=== PATIENT | female | born 1940 | race Caucasian/White ===

== ENCOUNTER → 2020-08-01 | Outpatient (CLI) | payer OTHER, BC ==
[~2020-08-01] MED LIST: AMITRIPTYLINE H25 M3 PO; ANALPRAM HC 2.530 GM RECTAL; ASA81BEC PO; AZELASTIN-FLUTI23 GM INH; CO Q-10150 MG PO; COZAAR 25 MG TA25 M2 PO; CRESTOR10 MG PO; FISH OIL 1,0001 EAC9 PO; GREEN TEA250 MG PO; LEXAPRO20 MG PO; PREVACID30 MG PO; VITAMIN B COMPLEX; VOLTAREN100 GM
--- NOTE | 2020-08-01 11:22 | NUR ---
VAT CONSULTED FOR PICC LINE FOR OUTPT IV ABX. RIGHT UPPER BASILIC, SL PICC INSERTED, PER POLICY. TIP LOCATION VERIFIED WITH 3CG. RELEASED FOR USE, PER HOSPITAL POLICY.
[2020-08-01 12:09] LABS: HEMATOCRIT 39.9 % (37.0-47.0); HEMOGLOBIN 12.8 gm/dL (12.0-15.0); MCH 28.3 pg (26.0-34.0); MCHC 32.1 g/dL (28.0-37.0); MCV 88.1 fL (80.0-100.0); RBC 4.53 mil/uL (4.20-5.00); RDW 14.7 % (10.5-14.5); WBC 7.6 thou/uL (4.0-11.0)
[2020-08-01 12:26] LABS: ALBUMIN 3.7 g/dL (3.4-5.0); CALCIUM 8.9 mg/dL (8.5-10.1); CREATININE 0.9 mg/dL (0.6-1.0); POTASSIUM 3.8 mmol/L (3.5-5.1); TOTAL BILIRUBIN 0.3 mg/dL (0.2-1.0); TOTAL PROTEIN 6.2 g/dL (6.4-8.2)
[2020-08-01 16:43] VITALS: BP 154/95
--- NOTE | 2020-08-01 16:44 | NUR ---
IN FOR PICC LINE PLACEMENT AND 1ST DOSE OF VANCOMYCIN FOR RT FOOT CELLULITIS. ADMISSION HISTORY AND ASSESSMENT COMPLETED. PATIENT COULD NOT REMEMBER WHAT MEDICATIONS SHE TAKES. SHE WILL BRING IN LIST5 ON TUESDAY. IV TEAM PLACED SINGLE LUMEN PICC LINE IN [facility] AND CONFIRMED CORRECT PLACEMENT. [facility] FROM PICC LINE WITHOUT DIFFICULTY. TOLERATED VANCOMYCIN WITHOUT INCIDENT. PLAN IS TO GO TO ED FOR WEEKEND INFUSIONS AND BACK HERE TO CLINIC ON TUESDAY. WILL SEE DR. GANDHI ON TUESDAY. DISMISSED IN GOOD CONDITION.
== END ==
LOC: OPONC 09:31
PROVIDERS: ATTEND Specialist
DX: L03.115 Cellulitis of right lower limb (principal)
CPT/HCPCS: 27000; 95000; 95001

== ENCOUNTER → 2020-08-02 | Outpatient (CLI) | payer OTHER, BC | LOC: OPONC 12:00 | PROVIDERS: ATTEND Specialist | DX: L03.115 Cellulitis of right lower limb (principal) | CPT/HCPCS: 95000; 95001 ==

== ENCOUNTER → 2020-08-03 | Outpatient (CLI) | payer OTHER, BC | LOC: OPONC 12:00 | PROVIDERS: ATTEND Specialist | DX: L03.115 Cellulitis of right lower limb (principal) | CPT/HCPCS: 95000; 95001 ==

== ENCOUNTER → 2020-08-04 | Outpatient (CLI) | payer OTHER, BC ==
[2020-08-04 13:38] VITALS: BP 128/74
--- NOTE | 2020-08-04 15:48 | NUR ---
IN FOR DAILY VANCOMYCIN INFUSION FOR RIGHT FOOT CELLULITIS. STATED FEELING WELL. VITAL SIGNS GOOD. DENIED FEVER/CHILLS, NAUSEA, AND PAIN. PATIENT REPORTED SHE DID HAVE A BOUT OF DIARRHEA THIS MORNING. ENCOURAGED PATIENT TO TRY IMMODIUM, BUT IF DIARRHEA BECOMES SEVERE TO NOTIFY THE DOCTOR. ALSO PATIENT WILL START TAKING A PROBIOTIC. TOLERATED INFUSION WITHOUT INCIDENT. DR. GANDHI VISITED. VANCOMYCIN TROUGH 9, SO DR. GANDHI INCREASED DOSAGE TO 1500 MG EVERY 24 HOURS. AN EXTRA 300 MG GIVEN TODAY TO BRING TOTAL DOSE TO 1500 MG. PLAN IS TO CONTINUE THE SAME THROUGH TUESDAY AND RE-EVALUATE. [facility] FROM PICC LINE WITHOUT DIFFICULTY. SITE WNL. WOUND TO RIGHT FOOT PACKED WITH IODOFORM POST SURGERY. DID NOT REMOVE TODAY. PATIENT TO SEE THE SURGEON ON TUESDAY. APPLIED XEROFORM, GAUZE, KERLIX AND APPLE WRAP. DISMISSED IN GOOD CONDITION.
--- NOTE | 2020-08-05 21:40 | HC ---
[facility] [place] [address] CONSULTATION Name: HENNA CORCORAN [id number] Admission: 08/04/20 Attend Phys: Kenji Ngo MD Discharge: Date of : 42 Report #: [id number] THIS REPORT FOR: cc: Beck Benoit MD, James B. MD Geha,Kenji Ragsdale MD ~ DATE OF SERVICE: 08/04/2020 INFECTIOUS DISEASE OUTPATIENT FOLLOWUP VISIT REASON FOR CONSULTATION: Right lateral foot soft tissue infection. HISTORY OF PRESENT ILLNESS: The patient is a 80-year-old with underlying scleroderma, Raynaud's syndrome, has had pain and swelling to her fifth metatarsal since 12/2019. She did undergo injection in the region, previously. Subsequently, has been on several courses of oral antibiotic therapy. She developed an ulceration over the lateral aspect of the fifth metatarsal head. She has had small amount of drainage. She was seen by Dr. Jordan, who did further workup including vascular ultrasound and MRI scan with no evidence of high-grade vascular obstruction. She did have what appears to be a small vessel disease. An MRI scan showed small abscess to the dorsal lateral aspect of her fifth MTP joint. There is no bony abnormality. She subsequently underwent a culture of the wound in the outpatient clinic, which revealed enterococcus. She then underwent a surgical debridement last week and I am awaiting these results. She was placed on vancomycin postoperatively. She remained on such and is tolerating it without side effect. ALLERGIES: ALLERGIC TO PENICILLIN. PAST MEDICAL HISTORY: Systemic sclerosis, Raynaud's syndrome, hyperlipidemia, hypertension, gastroesophageal reflux, and melanoma. REVIEW OF SYSTEMS: She has loose stools today. She has had no other cardiopulmonary or issues. Postoperatively, she has had her right foot dressed. There has been no drainage to the dressing. She has had pain controlled and is ambulatory. No fever, chills or sweats. PHYSICAL EXAMINATION: VITAL SIGNS: Afebrile and hemodynamically stable. GENERAL: She is alert and cooperative. EXTREMITIES: Right upper extremity PICC without drainage or erythema. Right foot wound was packed. Minimal surrounding erythema. No increased swelling. Right fifth toe, very mild edema. LABORATORY STUDIES: Vancomycin trough was 9 on 1200 mg IV every day. [address] [address] CONSULTATION Name: HENNA CORCORAN Room #: REG [facility].#: [id number] Admission: 08/04/20 Attend Phys: Kenji Ngo MD Discharge: Date of : 42 Report #: [id number] Creatinine is 0.9. Liver function tests normal. Hemoglobin is 12.8, white count 7.6, and platelet 224,000. IMPRESSION: Right lateral foot abscess over the fifth metatarsal head. No evidence of septic arthritis or osteomyelitis at this point. Had enterococcal growth from previous culture. THE PATIENT IS ALLERGIC TO PENICILLIN. PLAN: To continue vancomycin, pending further culture results. We would await wound healing before switching to enteral therapy. She is at very high risk for further issues involving the joint giving the history of scleroderma and suspected vascular compromise in the distal vascular bed. We will reevaluate next week. I have called for updated microbiology reports. <ELECTRONICALLY SIGNED> By: Kenji Ngo MD 08/05/20 2140 1428 2100 Kenji Ngo MD /nt
== END ==
LOC: OPONC 13:51
PROVIDERS: ATTEND Specialist
DX: L03.115 Cellulitis of right lower limb (principal)
CPT/HCPCS: 95000; 95001

== ENCOUNTER → 2020-08-05 | Outpatient (CLI) | payer OTHER, BC ==
[2020-08-05 10:28] LABS: POTASSIUM 3.9 mmol/L (3.5-5.1)
[2020-08-05 10:37] VITALS: BP 125/88
--- NOTE | 2020-08-05 13:13 | NUR ---
HERE FOR VANCOMYCIN VIA PICC LINE. PICC INTACT AND FLUSHES EASLILY WITH BRISK BLOOD RETURN. PATIENT RECIEVED INCREASED DOSE OF VANCOMYCIN 1500MG. TOLERATED INFUSION WITHOUT ADVERSE REACTION. BMP DRAWN AND RESULTS FAXED TO DR. GANDHI. PATIENT STATES SHE HAD DIARRHEA YESTERDAY BUT HAS HAD NONE TODAY. VOICED NO OTHER COMPLAINTS. DC FOLLOWING INFUSION PER WHEELCHAIR TO HOME WITH NEIGHBOR
== END ==
LOC: OPONC 09:01
PROVIDERS: ATTEND Specialist
DX: L03.115 Cellulitis of right lower limb (principal)
CPT/HCPCS: 95000; 95001

== ENCOUNTER → 2020-08-06 | Outpatient (CLI) | payer OTHER, BC ==
[2020-08-06 09:28] VITALS: BP 107/71
--- NOTE | 2020-08-06 12:20 | NUR ---
HERE FOR DAILY IV VANCOMYCIN INFUSION. REPORTS DOING WELL, FEELING WELL. DENIES N/V/DIARRHEA, FEVER/CHILLS OR ANY CONCERNS. NO PAIN. SEEING HER HARDENING MACHINE OPERATOR HELPER THIS AFTERNOON. TOLERATED INFUSION TODAY WITHOUT INCIDENT. DISMISSED IN STABLE CONDITION. SCHEDULED TO RETURN TOMORROW.
== END ==
LOC: OPONC 08:56
PROVIDERS: ATTEND Specialist
DX: L03.115 Cellulitis of right lower limb (principal)
CPT/HCPCS: 95000; 95001

== ENCOUNTER → 2020-08-07 | Outpatient (CLI) | payer OTHER, BC ==
[2020-08-07 09:56] VITALS: BP 113/48
--- NOTE | 2020-08-07 12:36 | NUR ---
HERE FOR DAILY IV VANCOMYCIN INFUSION. REPORTS DOING WELL, FEELING WELL. NO COMPLAINTS, DENIES N/V/DIARRHEA, FEVER/CHILLS. SAW HER AGRICULTURAL SCIENCES PROFESSOR YESTERDAY. STATES DR. HOYOS AND DR. GANDHI SPOKE AND THAT A NEW ORAL ANTIBIOTIC HAS BEEN CALLED IN TO HER PHARMACY. PT PLANS TO PICK THIS UP ON WAY HOME TODAY. SHE IS ALSO PICKING UP DRESSING SUPPLIES AND STATES SHE IS ABLE TO CHANGE HER DRESSING DAILY PER RECOMMENDATION OF DR. HOYOS--CLEANSE WITH SALINE THEN APPLY DRY GAUZE DAILY. VANCO TR DRAWN PRIOR TO DOSE TODAY AND RESULT CALLED TO DR. GANDHI (15). HE STATES THIS IS JUST WHERE HE WANTS IT TO BE. PT TOLERATED INFUSION WITHOUT INCIDENT. DISMISSED IN STABLE CONDITION. SCHEDULED TO RETURN AGAIN TOMORROW.
== END ==
LOC: OPONC 09:07
PROVIDERS: ATTEND Specialist
DX: L03.115 Cellulitis of right lower limb (principal)
CPT/HCPCS: 95000; 95001

== ENCOUNTER → 2020-08-08 | Outpatient (CLI) | payer OTHER, BC ==
[2020-08-08 15:11] VITALS: BP 127/85
--- NOTE | 2020-08-08 15:15 | NUR ---
IN FOR DAILY DAPTOMYCIN INFUSION FOR RT FOOT WOUND AND CELLULITIS. STATED FEELING WELL TODAY. DENIED NAUSEA, DIARRHEA, FEVER/CHILLS, JOINT PAIN, AND NO PAIN TO ACHILLES TENDONS. PICC SITE WNL WITH GOOD BLOOD RETURN. TOLERATED INFUSION WITHOUT DIFFICULTY. DR. GANDHI VISITED. PLAN IS TO CONTINUE THE SAME FOR ONE MORE WEEK. TO SEE DR. GANDHI AGAIN NEXT TUESDAY. APPLIED XEROFORM DRESSING, GAUZE, KERLIX AND APPLE WRAP TO WOUND ON RT FOOT. DISMISSED IN STABLE CONDITION.
--- NOTE | 2020-08-09 18:56 | HC ---
[facility] [place] [address] CONSULTATION Name: HENNA CORCORAN [facility] [id number] Admission: 08/08/20 Attend Phys: Kenji Ngo MD Discharge: Date of : 42 Report #: [id number] THIS REPORT FOR: cc: Beck Benoit MD, James B. MD Geha,Kenji Ragsdale MD ~ DATE OF SERVICE: 08/08/2020 FOLLOWUP INFECTIOUS DISEASE OUTPATIENT CONSULTATION REASON FOR CONSULTATION: Followup right lateral foot soft tissue infection in the setting of Raynaud's and scleroderma. HISTORY OF PRESENT ILLNESS: The patient has had pain in her fifth metatarsal since December of 2019. She underwent a steroid injection for this and subsequently developed a soft tissue infection of the fifth metatarsal head laterally. This had a small abscess evident which was debrided. There was no evidence of exposed bone. Cultures had revealed Enterococcus and gram-negative bacilli sensitive to ciprofloxacin. She is now on vancomycin, ciprofloxacin without side effect. She has a right upper extremity PICC, which is functioning well. Her vancomycin trough was 15 and satisfactory. Laboratory studies were reviewed. REVIEW OF SYSTEMS: Denies any cardiopulmonary, GI or complaints. She has had minimal amount of pain in her right foot. Minimal drainage. ALLERGIES: The patient is ALLERGIC TO PENICILLIN. MEDICATIONS: Include vancomycin, ciprofloxacin. PHYSICAL EXAMINATION: VITAL SIGNS: She is afebrile and hemodynamically stable. EXTREMITIES: Right upper extremity PICC without erythema or drainage. No change in her scleroderma skin disease. The right lateral foot wound had a clean base with minimal granulation tissue formation. There was no purulent drainage. There was no exposed bone. IMPRESSION: Right lateral foot abscess over the fifth metatarsal head, so far no evidence of osteomyelitis. Cultures have revealed mixed james. Now on vancomycin, ciprofloxacin without side effect. Plan on continuing her current [facility] [address] [place] [address] CONSULTATION Name: JEWELLHENNAANA GIBBS [facility] [id number] Admission: 08/08/20 Attend Phys: Kenji Ngo MD Discharge: Date of : 42 Report #: [id number] therapy another week and reevaluate. Once we have a good granulation bed, we will be able to switch over to enteral therapy to complete her course. <ELECTRONICALLY SIGNED> By: Kenji Ngo MD 08/09/20 1856 1410 14 Kenji Ngo MD /nt
== END ==
LOC: OPONC 09:15
PROVIDERS: ATTEND Specialist
DX: L03.115 Cellulitis of right lower limb (principal)
CPT/HCPCS: 95000; 95001

== ENCOUNTER → 2020-08-09 | Outpatient (CLI) | payer OTHER, BC | LOC: OPONC 12:00 | PROVIDERS: ATTEND Specialist | DX: L03.115 Cellulitis of right lower limb (principal) | CPT/HCPCS: 95000; 95001 ==

== ENCOUNTER → 2020-08-10 | Outpatient (CLI) | payer OTHER, BC | LOC: OPONC 12:00 | PROVIDERS: ATTEND Specialist | DX: L03.115 Cellulitis of right lower limb (principal) | CPT/HCPCS: 95000; 95001 ==

== ENCOUNTER → 2020-08-11 | Outpatient (CLI) | payer OTHER, BC ==
[2020-08-11 10:05] VITALS: BP 100/66
[2020-08-11 10:22] LABS: HEMATOCRIT 36.9 % (37.0-47.0); HEMOGLOBIN 12.1 gm/dL (12.0-15.0); MCH 28.7 pg (26.0-34.0); MCHC 32.8 g/dL (28.0-37.0); MCV 87.7 fL (80.0-100.0); RBC 4.21 mil/uL (4.20-5.00); RDW 14.5 % (10.5-14.5); WBC 6.9 thou/uL (4.0-11.0)
[2020-08-11 10:52] LABS: ALBUMIN 3.3 g/dL (3.4-5.0); CALCIUM 8.7 mg/dL (8.5-10.1); CREATININE 1.1 mg/dL (0.6-1.0); TOTAL BILIRUBIN 0.4 mg/dL (0.2-1.0); TOTAL PROTEIN 6.3 g/dL (6.4-8.2)
--- NOTE | 2020-08-11 13:17 | NUR ---
HERE FOR DAILY IV VANCOMYCIN INFUSION. REPORTS DOING WELL. DENIES N/V/DIARRHEA, FEVER/CHILLS, TINNITUS. STATES WEEKEND INFUSIONS WENT WELL. ONLY CONCERN IS A BLISTER THAT OPENED AND LEAKED FLUID FROM BOTTOM MEDIAL CORNER OF DRESSING COVERING PICC LINE. PICC SITE ITSELF LOOKS VERY GOOD AND PICC IS FUNCTIONING WELL. THIS OPEN BLISTER IS NOW DRY. CLEANSED AND COVERED AREA WITH A TELFA COVERING THEN A TRANSPARENT DRESSING. PT TOLERATED TODAY'S INFUSION WITHOUT INCIDENT. LABS DRAWN AND FAXED TO DR. GANDHI. PT DISMISSED IN STABLE CONDITION. WILL RETURN IN THE MORNING.
== END ==
LOC: OPONC 09:41
PROVIDERS: ATTEND Specialist
DX: L03.115 Cellulitis of right lower limb (principal)
CPT/HCPCS: 95000; 95001

== ENCOUNTER → 2020-08-12 | Outpatient (CLI) | payer OTHER, BC ==
[2020-08-12 12:25] VITALS: BP 126/61
--- NOTE | 2020-08-12 12:27 | NUR ---
IN FOR DAILY VANCOMYCIN INFUSION FOR RT FOOT CELLULITIS. DENIED NAUSEA, DIARRHEA, FEVER AND CHILLS. WEARING OPEN TOE'D BOOT ON RT FOOT. DRESSING C/D/I. TOLERATED INFUSION WITHOUT INCIDENT. TO RETURN TOMORROW FOR THE SAME. DISMISSED IN STABLE CONDITION.
== END ==
LOC: OPONC
PROVIDERS: ATTEND Specialist
DX: L03.115 Cellulitis of right lower limb (principal)
CPT/HCPCS: 95000; 95001

== ENCOUNTER → 2020-08-13 | Outpatient (CLI) | payer OTHER, BC ==
[2020-08-13 10:03] VITALS: BP 125/68
--- NOTE | 2020-08-13 12:30 | NUR ---
HERE FOR DAILY IV VANCOMYCIN INFUSION. REPORTS DOING WELL, FEELING WELL. DENIES N/V/DIARRHEA, FEVER/CHILLS. NO CONCERNS NOTED. SLIGHT DISCOMFORT IN RT FOOT. STATES SHE IS CHANGING OWN DRESSING WITHOUT DIFFICULTY. PICC DRSG INTACT, NO MORE EVIDENCE OF NEW SKIN BLISTERING. TOLERATED INFUSION TODAY WITHOUT INCIDENT. DISMISSED IN STABLE CONDITION. RETURNS HERE TOMORROW AFTER HER GIS TECHNICIAN APPT AT 0915.
== END ==
LOC: OPONC 09:52
PROVIDERS: ATTEND Specialist
DX: L03.115 Cellulitis of right lower limb (principal)
CPT/HCPCS: 95000; 95001

== ENCOUNTER → 2020-08-14 | Outpatient (CLI) | payer OTHER, BC ==
[2020-08-14 10:19] VITALS: BP 123/45
[2020-08-14 10:33] LABS: CALCIUM 8.7 mg/dL (8.5-10.1); CREATININE 1.2 mg/dL (0.6-1.0); POTASSIUM 3.7 mmol/L (3.5-5.1)
--- NOTE | 2020-08-14 14:04 | NUR ---
IN FOR DAILY VANCOMYCIN INFUSION FOR RT FOOT CELLULITIS. PATIENT CONTINUES TO DO WELL. DENIED PAIN, NAUSEA, FEVER/CHILLS. HAD ONE DIARRHEA EPISODE LAST NIGHT BUT FEELING FINE TODAY. [facility] FROM PICC LINE WITHOUT DIFFICULTY. TOLERATED INFUSION WITHOUT INCIDENT. TO RETURN TOMORROW FOR THE SAME AND TO SEE DR. GANDHI. DISMISSED IN GOOD CONDITION.
== END ==
LOC: OPONC 10:19
PROVIDERS: ATTEND Specialist
DX: L03.115 Cellulitis of right lower limb (principal)
CPT/HCPCS: 95000; 95001

== ENCOUNTER → 2020-08-15 | Outpatient (CLI) | payer OTHER, BC ==
[2020-08-15 11:36] VITALS: BP 129/55
--- NOTE | 2020-08-15 14:05 | NUR ---
IN FOR DAILY VANCOMYCIN INFUSION FOR RT FOOT CELLULITIS. PATIENT STATED FEELING WELL. DENIED NAUSEA, DIARRHEA, FEVER, CHILLS AND PAIN. TOLERATED INFUSION WITHOUT INCIDENT. DR. GANDHI VISITED. PLAN IS TO CONTINUE THE SAME FOR ONE MORE WEEK AND THEN RE-EVALUATE. WOULD TO RT FOOT HEALING WITH SMALL AMOUNT OF SEROUS DRAINAGE, ERYTHEMA AND EDEMA. WOUND MEASURED 1/2 CM X ALMOST 1 CM WHICH IS AN IMPROVEMENT. REDRESSED FOOT WITH XEROFORM, GAUZE, KERLIX AND APPLE WRAP. TO GO TO ED FOR WEEKEND INFUSIONS AND BACK TO CLINIC ON TUESDAY. DISMISSED IN GOOD CONDITION.
--- NOTE | 2020-08-18 14:23 | HC ---
[facility] [place] [address] CONSULTATION Name: HENNA CORCORAN [id number] Admission: 08/15/20 Attend Phys: Kenji Ngo MD Discharge: Date of : 42 Report #: [id number] THIS REPORT FOR: cc: Beck Benoit MD, James B. MD Geha,Kenji Ragsdale MD ~ DATE OF SERVICE: 08/15/2020 OUTPATIENT FOLLOWUP ID VISIT REASON FOR CONSULTATION: Followup of right lateral foot soft tissue infection in the setting of Raynaud's and scleroderma. The patient has had pain involving her right fifth metatarsal since 12/2019. She had a steroid injection followed by soft tissue infection with an abscess. Cultures revealed Enterococcus and gram-negative bacillus sensitive to ciprofloxacin. Continues on vancomycin, ciprofloxacin without side effect. She has a right upper extremity PICC, which is functioning well. Her last vancomycin trough was 13. Laboratory studies remained stable. She has had very slow improvement in her wound. REVIEW OF SYSTEMS: No cardiopulmonary, GI or issues. PHYSICAL EXAMINATION: VITAL SIGNS: She was afebrile and hemodynamically stable. EXTREMITIES: Right foot wound was approximately 1 cm in diameter. She had a pale granulation base. No purulent drainage, no surrounding cellulitis. 1+ edema involving her fifth toe. Right upper extremity PICC was without erythema or drainage. LABORATORY DATA: Reviewed. IMPRESSION: Right lateral foot abscess over the right fifth metatarsal head, so far no evidence of bony involvement. Very slow healing process given the underlying scleroderma and Raynaud's. She will continue vancomycin at this point for 1 more week and we will reassess her wound healing. If continued improvement, we will anticipate finishing her course of IV therapy at that time. <ELECTRONICALLY SIGNED> By: Kenji Ngo MD 08/18/20 1423 1304 1347 Kenji Ngo MD /nt
== END ==
LOC: OPONC 11:33
PROVIDERS: ATTEND Specialist
DX: L03.115 Cellulitis of right lower limb (principal)
CPT/HCPCS: 95000; 95001

== ENCOUNTER → 2020-08-16 | Outpatient (CLI) | payer OTHER, BC | LOC: OPONC 08-15 15:27 → EDSTATUS 08-15 16:34 → OPONC 08:58 | PROVIDERS: ATTEND Specialist | DX: L03.115 Cellulitis of right lower limb (principal) | CPT/HCPCS: 95000; 95001 ==

== ENCOUNTER → 2020-08-17 | Outpatient (CLI) | payer OTHER, BC | LOC: OPONC 09:02 → EDSTATUS 16:34 | PROVIDERS: ATTEND Specialist | DX: L03.115 Cellulitis of right lower limb (principal) | CPT/HCPCS: 95000; 95001 ==

== ENCOUNTER → 2020-08-18 | Outpatient (CLI) | payer OTHER, BC ==
[2020-08-18 10:46] LABS: HEMATOCRIT 37.3 % (37.0-47.0); HEMOGLOBIN 12.2 gm/dL (12.0-15.0); MCH 28.5 pg (26.0-34.0); MCHC 32.7 g/dL (28.0-37.0); MCV 87.2 fL (80.0-100.0); RBC 4.28 mil/uL (4.20-5.00); RDW 14.3 % (10.5-14.5); WBC 6.4 thou/uL (4.0-11.0)
[2020-08-18 11:17] VITALS: BP 137/54
[2020-08-18 11:29] LABS: ALBUMIN 3.7 g/dL (3.4-5.0); CALCIUM 8.7 mg/dL (8.5-10.1); CREATININE 1.1 mg/dL (0.6-1.0); TOTAL BILIRUBIN 0.5 mg/dL (0.2-1.0); TOTAL PROTEIN 6.2 g/dL (6.4-8.2)
--- NOTE | 2020-08-18 11:54 | NUR ---
IN FOR DAILY DAPTOMYCIN INFUSION FOR RT FOOT CELLULITIS. DENIED DIARREA, PAIN. HAD HER 2ND COVID VACCINE YESTERDAY AND FEELING A LITTLE NAUSEOUS TODAY AND HAS A FEVER OF 101.4. STATED HAD CHILLS LAST NIGHT BUT NONE THIS AM. TOLERATED INFUSION WITHOUT INCIDENT. VITALIYO TR 19. NOTIFIED DR. GANDHI. ORDER RECEIVED TO DECREASE VANCOMYCIN DOSE TO 1250 MG DAILY. PATIENT DISMISSED IN GOOD CONDITION.
== END ==
LOC: OPONC 08:47
PROVIDERS: ATTEND Specialist
DX: L03.115 Cellulitis of right lower limb (principal)
CPT/HCPCS: 95000; 95001

== ENCOUNTER → 2020-08-19 | Outpatient (CLI) | payer OTHER, BC ==
[2020-08-19 12:31] VITALS: BP 123/72
--- NOTE | 2020-08-19 12:38 | NUR ---
IN FOR DAILY VANCOMYCIN INFUSION FOR RT FOOT CELLULITIS. STATED FEELING WELL TODAY. DENIED FEVER/CHILLS, NAUSEA, DIARRHEA AND PAIN. TOLERATED INFUSION WITHOUT INCIDENT. PICC SITE WNL. DISMISSED IN GOOD CONDITION.
== END ==
LOC: OPONC 10:04
PROVIDERS: ATTEND Specialist
DX: L03.115 Cellulitis of right lower limb (principal)
CPT/HCPCS: 95000; 95001

== ENCOUNTER → 2020-08-20 | Outpatient (CLI) | payer OTHER, BC ==
[2020-08-20 10:45] VITALS: BP 117/56
--- NOTE | 2020-08-20 12:44 | NUR ---
ARRIVED IN WHEELCHAIR FOR NEXT VANCOMYCIN INFUSION. PICC DRESSING INTACT AND LINE FLUSHES EASILY WITH BRISK BLOOD RETURN. TOLERATED INFUSION WITHOUT ADVERSE REACTION. VSS. NO COMPLAINTS OF DIARHHEA OR NAUSEA. DC PER WHEELCHAIR IN STABLE CONDITION.
== END ==
LOC: OPONC 10:50
PROVIDERS: ATTEND Specialist
DX: L03.115 Cellulitis of right lower limb (principal)
CPT/HCPCS: 95000; 95001

== ENCOUNTER → 2020-08-21 | Outpatient (CLI) | payer OTHER, BC ==
[2020-08-21 10:15] VITALS: BP 131/65
[2020-08-21 10:42] LABS: CREATININE 1.2 mg/dL (0.6-1.0); POTASSIUM 3.7 mmol/L (3.5-5.1)
--- NOTE | 2020-08-21 11:51 | NUR ---
PT IN FOR DAILY VANCOMYCIN INFUSION. REPORTS DOING WELL, FEELING WELL. DENIES N/V/DIARRHEA, FEVER/CHILLS. STATES DAUGHTER CHANGED DRESSING ON HER RT FOOT YESTERDAY AND COMMENTED ON HOW WELL IT IS LOOKING. PT WILL SEE DR. GANDHI IN THE CLINIC TOMORROW. TOLERATED INFUSION WITHOUT INCIDENT. WILL RETURN TOMORROW AT 1100.
== END ==
LOC: OPONC 09:57
PROVIDERS: ATTEND Specialist
DX: L03.115 Cellulitis of right lower limb (principal)
CPT/HCPCS: 95000; 95001

== ENCOUNTER → 2020-08-22 | Outpatient (CLI) | payer OTHER, BC ==
[2020-08-22 11:30] VITALS: BP 120/65
--- NOTE | 2020-08-22 13:40 | NUR ---
HERE FOR DAILY IV VANCOMYCIN AND TO SEE DR. GANDHI. REPORTS DOING WELL, FEELING WELL. DENIES N/V/DIARRHEA, FEVER/CHILLS. NO C/O PAIN. DAUGHTER HAS BEEN HELPING WITH WOUND DRESSINGS. TOLERATED INFUSION WITHOUT INCIDENT TODAY. DR. GANDHI ROUNDED AT COMPLETION OF INFUSION AND ORDER RECEIVED TO PULL PICC AND STOP VANCOMYCIN. PT TO STAY ON HER ORAL CIPRO. STATES SHE HAS PLENTY AND VERBALIZES UNDERSTANDING TO STAY ON THIS. DR. GANDHI ALSO ADVISED THAT PT KEEP FEET COVERED AND WARM AT ALL TIMES, ENCOURAGED TO ALWAYS WEAR GOOD, WARM SOCKS. PT STATES SHE WILL START DOING SO. WOUND REDRESSED AFTER ASSESSED BY DR. GANDHI. STILL HAS A SQUARE OPENING SLIGHTLY LESS THAN 0.5 X 0.5 CM, LOOKS CLEAN, NOT INFLAMED. PLACED XEROFORM GAUZE ON, 4X4 THEN APPLE WRAP. PT STATES SHE WILL CONTINUE DAILY DRESSING CHANGES. SEES THE WE[facility]ERCASTER IN A WEEK. SCHEDULED TO RETURN HERE NEXT WEEK ON TUESDAY TO HAVE LABS REPEATED AND SEE DR. GANDHI. PICC WAS PULLED WITH EASE. PT INSTRUCTED TO KEEP DRESSING ON FOR 24 HOURS THEN OK TO REMOVE AND KEEP OPEN OR COVER WITH BANDAID INDICATED. DISMISSED IN STABLE CONDITION.
--- NOTE | 2020-08-23 15:12 | HC ---
[facility] [place] [address] CONSULTATION Name: HENNA CORCORAN [id number] Admission: 08/22/20 Attend Phys: Kenji Ngo MD Discharge: Date of : 42 Report #: [id number] THIS REPORT FOR: cc: Beck Benoit MD, James B. MD Geha,Kenji Ragsdale MD ~ DATE OF SERVICE: 08/22/2020 FOLLOWUP ID CONSULTATION REASON FOR CONSULTATION: Followup right lateral foot soft tissue abscess in the setting of Raynaud's and scleroderma. She developed soft tissue abscess after steroid injection for chronic right fifth metatarsal pain. Culture revealed Enterococcus and gram-negative bacillus sensitive to ciprofloxacin. She continues on vancomycin and ciprofloxacin without significant side effect. Her vancomycin levels have been satisfactory. She has a right upper extremity PICC, which has been functioning well. The right lateral foot wound has continued to shrink in size and has had no drainage. She continues with her Raynaud's symptoms. No cardiopulmonary, GI or issues. PHYSICAL EXAMINATION: VITAL SIGNS: She was afebrile and hemodynamically stable. EXTREMITIES: Right upper extremity PICC was without erythema or drainage. She had a significant Raynaud's changes involving her upper and lower extremities. The right foot wound was 1.5 cm in diameter with granulation tissue present. No purulent drainage or surrounding cellulitis. No significant edema. LABORATORY STUDIES: Reviewed with hemoglobin of 12.2 and WBC 6.4. ESR of 3, creatinine of 1.2. Vancomycin trough of 19. IMPRESSION: Right lateral foot abscess over the right fifth metatarsal head with no evidence of osteomyelitis. Given her advanced scleroderma and Raynaud's changes, she was treated aggressively with vancomycin and ciprofloxacin. PLAN: Will be to finish her course of IV therapy today and finish her course of ciprofloxacin throughout next week. I would like to see her back in the ID Clinic in 1 week to follow this wound. Also recommended keeping her feet warm using stockings at all times. <ELECTRONICALLY SIGNED> By: Kenji Ngo MD 08/23/20 1512 1319 01 Kenji Ngo MD /nt
== END ==
LOC: OPONC 10:56 → EDSTATUS 16:35
PROVIDERS: ATTEND Specialist
DX: L03.115 Cellulitis of right lower limb (principal)
CPT/HCPCS: 95000; 95001

== ENCOUNTER → 2021-06-23 | Outpatient (CLI) | payer OTHER, BC | LOC: SJCVC 11:27 | PROVIDERS: ATTEND Internal Medicine Cardiovascular Disease | DX: R94.31 Abnormal electrocardiogram [ECG] [EKG] (principal); I10 Essential (primary) hypertension; R07.9 Chest pain, unspecified; E78.00 Pure hypercholesterolemia, unspecified; R00.2 Palpitations; E78.5 Hyperlipidemia, unspecified; Z88.0 Allergy status to penicillin; Z79.82 Long term (current) use of aspirin; Z79.899 Other long term (current) drug therapy ==

== ENCOUNTER → 2021-06-25 | Outpatient (CLI) | payer OTHER, BC ==
--- NOTE | 2021-06-25 12:41 | EXE ---
[facility] [place] [address] STRESS ECHOCARDIOGRAM Name: HENNA CORCORAN Room #: REG [facility]#: [id number] Admission: 06/25/21 Attend Phys: Bright Wahl MD Discharge: Date of : 42 Report #: [id number] THIS REPORT FOR: cc: FAM - Family physician unknown FAM - Family physician unknown Bright Wahl MD ~ APPROVED REPORT Study performed: 06/25/2021 11:13:50 Exam: Stress Echocardiogram Indication: Palpitations Patient Location: Out-Patient Room #: 2 Status: routine Ht: 5 ft 5 in HR: 86 bpm BP: 142/88 mmHg Rhythm: NSR Medical History Cardiac Risk Factors: HTN Exercise History: Physically active Procedure The patient underwent an Exercise Stress Test using the Parish Protocol. Blood pressure, heart rate, and EKG were monitored. An Echocardiogram was performed by remote broadcast technician in four stages in quad fashion. At peak stress, four selected images were obtained and placed side by side with resting images for comparison. Stress Test Details Stress Test: Exercise stress testing was performed using a Parish protocol. HR Resting HR: 86 bpm Max Heart Rate (APMHR): 141 bpm Max HR Achieved: 141 bpm Target HR (85% APMHR): 119 bpm % of APMHR: 100 Recovery HR: 97 bpm HR response to stress: Normal HR response to stress BP Resting BP: 142/88 mmHg Max BP: 160/80 mmHg [facility] [address] [address] STRESS ECHOCARDIOGRAM Name: HENNA CORCORAN Room #: REG CL [facility]#: [id number] Admission: 06/25/21 Attend Phys: Bright Wahl MD Discharge: Date of : 44 Report #: [id number] Recovery BP: 128/70 mmHg BP response to stress: Normal blood pressure response to stress. ECG Resting ECG: Sinus Rhythm Stress ECG: Sinus Rhythm, nonspecific ST-T abnormalities ST Change: Non-ischemic Clinical Reason for Termination: Maximal effort Exercise duration: 6 min sec Highest Stage Achieved: Stage 2: 2.5 mph at 12% grade. Exercise capacity: 7 METs Overall Exercise Capacity for Age: Normal Pre-Stress Echo The resting Echocardiogram showed normal left ventricular contractility with an estimated Ejection Fraction of about >55%. The resting echocardiogram demonstrated normal wall motion in all wall segments. Normal wall motion in all segments on baseline images. Post-Stress Echo The stress Echocardiogram showed normal left ventricular contractility with an estimated Ejection Fraction of about 55-60%. Compared to rest, there were no stress-induced wall motion abnormalities. Normal augmentation of wall motion in all segments on post stress images. Clinical No clinical or ECG evidence for ischemia. Conclusion Clinical Response: Non-ischemic Exercise Capacity: Average Stress ECG Response: Non-ischemic Stress Echo Images: Non-ischemic The left ventricle is normal in size and wall thickness in both the rest and stress images. No prior study available for comparison. Other Information Study Quality: Good <Conclusion> [facility] [address] [place] [address] STRESS ECHOCARDIOGRAM Name: HENNA CORCORAN Room #: REG [facility].#: [id number] Admission: 06/25/21 Attend Phys: Bright Wahl MD Discharge: Date of : 44 Report #: [id number] The left ventricle is normal in size and wall thickness in both the rest and stress images. <ELECTRONICALLY SIGNED> By: Bright aWhl MD 06/25/21 1240 124 39 Bright Wahl MD /INF
== END ==
LOC: CV 10:25
PROVIDERS: ATTEND Internal Medicine Cardiovascular Disease
DX: R00.2 Palpitations (principal)